=== PATIENT | male | born 1970 | race Caucasian/White ===

== ENCOUNTER 2019-02-22 13:06 | Emergency (ER) | payer BC ==
[2019-02-22 13:12] VITALS: RESP 18; TEMP 98.3
[2019-02-22] MEDS ORDERED: KETOROLAC 30 MG/ML 1 ML VIAL IVP STA (13:28)
[2019-02-22] MEDS ORDERED: ONDANSETRON 4 MG/2 ML VIAL IVP STA (13:28)
[2019-02-22] MEDS ORDERED: SODIUM CHLORIDE 0.9% 1,000 ML IV STA (13:28)
--- NOTE | 2019-02-22 13:47 | ED ---
Abdominal Pain HPI - General Chief Complaint: Abdominal Pain Stated Complaint: Kidney Stone Time Seen by Provider: 02/22/19 13:24 Source: patient Mode of arrival: ambulatory Limitations: no limitations - History of Present Illness Initial Comments: Patient is a 49-year-old male presenting to the emergency Department with complaints of an acute onset left sided abdominal pain. Patient states he noticed the pain this morning but has been increasing for the past few hours. Patient states he does have a history of kidney stones and this feels similar. Patient states his last one was months ago. Patient admits to mild nausea. Patient denies fever, chills, vomiting. Patient describes the pain along his left side that sometimes radiates towards his groin. Patient states he feels like he's been having to use the restroom more frequently. Patient denies any hematuria. Patient has no other complaints at this time. Upon arrival to the ER, vital signs are stable, afebrile. - Related Data Previous Rx's Medication Instructions Recorded Ketorolac [Toradol] 10 mg PO Q8HR #15 tab 02/22/19 Tamsulosin [Flomax] 0.4 mg PO DAILY #7 cap 02/22/19 Allergies Allergy/AdvReac Type Severity Reaction Status Date / Time No Known Allergies Allergy Verified 02/22/19 13:09 Review of Systems ROS Statement: Those systems with pertinent positive or pertinent negative responses have been documented in the HPI. ROS Other: All systems not noted in ROS Statement are negative. Past Medical History Additional Past Medical History / Comment(s): kindey stones History of Any Multi-Drug Resistant Organisms: None Reported Past Surgical History: No Surgical Hx Reported Past Psychological History: No Psychological Hx Reported Smoking Status: Never smoker Past Alcohol Use History: None Reported Past Drug Use History: None Reported General Exam - General Exam Comments Initial Comments: GENERAL: Patient is pacing in the room, sitting than standing, uncomfortable. HEAD: Atraumatic, normocephalic. EYES: Pupils equal round and reactive to light, extraocular movements intact, sclera anicteric, conjunctiva are normal. ENT: Nares patent, oropharynx clear without exudates. Moist mucous membranes. NECK: Normal range of motion, supple without lymphadenopathy or JVD. LUNGS: Breath sounds clear to auscultation bilaterally and equal. No wheezes rales or rhonchi. HEART: Regular rate and rhythm without murmurs, rubs or gallops. ABDOMEN: Tender to palpation in the left flank, left side abdomen. Soft, normoactive bowel sounds. No guarding, no rebound. No masses appreciated. : Deferred EXTREMITIES: Normal range of motion, no pitting or edema. No clubbing or cyanosis. NEUROLOGICAL: Cranial nerves II through XII grossly intact. Normal speech, normal gait. PSYCH: Normal mood, normal affect. SKIN: Warm, Dry, normal turgor, no rashes or lesions noted. Limitations: no limitations Course Vital Signs 02/22/19 13:09 Temperature 98.3 F Pulse Rate 82 Respiratory 18 Rate Blood Pressure 150/81 O2 Sat by Pulse 96 Oximetry Medical Decision Making - Medical Decision Making Patient is a 49-year-old male presenting with left-sided flank pain that started today. Patient's vital signs are stable. Lab work reveals a 1.32 creatinine, glucose is 302, total bili is 2.3. UA reveals 4+ glucose, large amount of blood. CT of the abdomen reveals 5-6 mm distal left ureter calculus causing mild to moderate left-sided hydronephrosis. Depending calcified gallstones are also seen on computed tomography scan. Patient was given fluids, Toradol for pain relief and reports improvement in his symptoms. Ultrasound of the gallbladder was ordered. Ultrasound reveals a gallstone without secondary evidence for acute cholecystitis. No biliary duct dilation. Patient is stable for discharge at this time. Patient does not live in this area but will follow- up with his urologist as well as PCP. Patient is in agreement with this plan of care. Return parameters were discussed with the patient he verbalizes understanding. Case discussed with Dr. Govea. - Lab Data Result diagrams: 02/22/19 13:55 02/22/19 13:55 Lab Results 02/22/19 02/22/19 02/22/19 Range/Units 13:55 13:55 13:55 WBC 7.4 (3.8-10.6) k/uL RBC 5.62 (4.30-5.90) m/uL Hgb 17.3 (13.0-17.5) gm/dL Hct 48.8 (39.0-53.0) % MCV 86.9 (80.0-100.0) fL MCH 30.8 (25.0-35.0) pg MCHC 35.5 (31.0-37.0) g/dL RDW 12.6 (11.5-15.5) % Plt Count 206 (150-450) k/uL Neutrophils % 62 % Lymphocytes % 28 % Monocytes % 5 % Eosinophils % 2 % Basophils % 1 % Neutrophils # 4.6 (1.3-7.7) k/uL Lymphocytes # 2.1 (1.0-4.8) k/uL Monocytes # 0.4 (0-1.0) k/uL Eosinophils # 0.1 (0-0.7) k/uL Basophils # 0.1 (0-0.2) k/uL Sodium 139 (137-145) mmol/L Potassium 3.8 (3.5-5.1) mmol/L Chloride 106 (98-107) mmol/L Carbon Dioxide 24 (22-30) mmol/L Anion Gap 9 mmol/L BUN 12 (9-20) mg/dL Creatinine 1.32 H (0.66-1.25) mg/dL Est GFR (CKD-EPI)AfAm 72 (>60 ml/min/1.73 sqM) Est GFR (CKD-EPI)NonAf 62 (>60 ml/min/1.73 sqM) Glucose 302 H (74-99) mg/dL Calcium 9.4 (8.4-10.2) mg/dL Total Bilirubin 2.3 H (0.2-1.3) mg/dL AST 46 (17-59) U/L ALT 70 (21-72) U/L Alkaline Phosphatase 79 (38-126) U/L Total Protein 7.2 (6.3-8.2) g/dL Albumin 4.3 (3.5-5.0) g/dL Amylase 65 (30-110) U/L Lipase 128 (23-300) U/L Urine Color Yellow Urine Appearance Clear (Clear) Urine pH 5.5 (5.0-8.0) Ur Specific [place] 1.026 (1.001-1.035) Urine Protein Negative (Negative) Urine Glucose (UA) 4+ H (Negative) Urine Ketones Negative (Negative) Urine Blood Large H (Negative) Urine Nitrite Negative (Negative) Urine Bilirubin Negative (Negative) Urine Urobilinogen <2.0 (<2.0) mg/dL Ur Leukocyte Esterase Negative (Negative) Urine RBC 46 H (0-5) /hpf Urine WBC 1 (0-5) /hpf Ur Squamous Epith Cells <1 (0-4) /hpf Urine Mucus Rare H (None) /hpf Disposition Clinical Impression: Calculus of distal left ureter, Gallstone Disposition: HOME SELF-CARE Condition: Stable Instructions (If sedation given, give patient instructions): Kidney Stones (ED) Additional Instructions: Please return to the Emergency Department if symptoms worsen or any other concerns. Please schedule an appointment with a primary care physician or internal medicine doctor for follow-up for kidney stones, gallbladder stone, elevated glucose levels. You have a large left-sided kidney stone causing pain today as well as small right kidney stones and a stone in the gallbladder. Take medications as prescribed. Prescriptions: Tamsulosin [Flomax] 0.4 mg PO DAILY #7 cap Ketorolac [Toradol] 10 mg PO Q8HR #15 tab Is patient prescribed a controlled substance at d/c from ED?: No Referrals: None,Stated [Primary Care Provider] - 1-2 days Dylan Villegas MD [REFERRING] - 1-2 days
[2019-02-22 14:11] LABS: Basophils # (A) 0.1 k/uL (0-0.2); Basophils % (A) 1 %; Eosinophils # (A) 0.1 k/uL (0-0.7); Eosinophils % (A) 2 %; HCT 48.8 % (39.0-53.0); HGB 17.3 gm/dL (13.0-17.5); Lymphocytes # (A) 2.1 k/uL (1.0-4.8); Lymphocytes % (A) 28 %; MCH 30.8 pg (25.0-35.0); MCHC 35.5 g/dL (31.0-37.0); MCV 86.9 fL (80.0-100.0); Mean Platelet Volume 6.5; Monocytes # (A) 0.4 k/uL (0-1.0); Monocytes % (A) 5 %; Neutrophils # (A) 4.6 k/uL (1.3-7.7); Neutrophils % (A) 62 %; Platelet Count 206 k/uL (150-450); RBC 5.62 m/uL (4.30-5.90); RDW 12.6 % (11.5-15.5); WBC 7.4 k/uL (3.8-10.6)
[2019-02-22 14:15] LABS: Appearance,Urine Clear (Clear); Bilirubin,Urine Negative (Negative); Blood,Urine Large (Negative); Color,Urine Yellow; Glucose,Urine (UA) 4+ (Negative); Ketones,Urine Negative (Negative); Leukocyte Esterase,Urine Negative (Negative); Mucus,Urine Rare /hpf; Nitrite,Urine Negative (Negative); PH, Urine 5.5 (5.0-8.0); Protein,Urine Negative (Negative); RBC,Urine 46 /hpf (0-5); Specific Gravity,Urine 1.026 (1.001-1.035); Squamous Epithelial Cell,Urine <1 /hpf (0-4); Urobilinogen,Urine <2.0 mg/dL (<2.0)
[2019-02-22 14:22] LABS: Albumin 4.3 g/dL (3.5-5.0); Calcium 9.4 mg/dL (8.4-10.2); Potassium 3.8 mmol/L (3.5-5.1); Total Bilirubin 2.3 mg/dL (0.2-1.3); Total Protein 7.2 g/dL (6.3-8.2)
--- NOTE | 2019-02-22 14:39 | CT ---
EXAMINATION TYPE: CT abdomen pelvis wo con DATE OF EXAM: 02/22/2019 HISTORY: Lt flank pain CT DLP: 615.3 mGycm. Automated Exposure Control for Dose Reduction was Utilized. TECHNIQUE: CT scan of the abdomen and pelvis is performed without oral or IV contrast. COMPARISON: NONE FINDINGS: Within the limitations of a non-contrast study, the following observations are made. LUNG BASES: No significant abnormality is appreciated. LIVER/GB: Liver is diffusely low-density consistent with fatty infiltration. Dependent calcified gall stones and gallbladder are seen.. PANCREAS: No significant abnormality is seen. SPLEEN: No significant abnormality is seen. ADRENALS: No significant abnormality is seen. KIDNEYS: There are 3-4 nonobstructing right renal calculi measuring up to 3 mm in size. No right-side d hydronephrosis or obstructing ureteral calculi. No left-sided renal calculi but there is obstructin g 5-6 mm calculus distal left ureter causing [id number] left-sided hydronephrosis and mild left -sided perinephric and periureteric fat stranding. No intraluminal calculus in poorly distended bladd er. BOWEL: Poorly distended bowel. No suspicious small or large bowel dilatation. Occasional distal colon ic diverticula proximal sigmoid colon. GENITAL ORGANS: No gross abnormality seen. LYMPH NODES: No greater than 1cm abdominal or pelvic lymph nodes are appreciated. OSSEOUS STRUCTURES: Mild disc space narrowing lower lumbar levels. Facet arthropathy lower lumbar lev els. Hypoplastic right T12 rib incidentally noted. Moderate narrowing in both hip joints.. OTHER: No significant additional abnormality is seen. IMPRESSION: There is 5 to 6 mm distal left ureteric calculus causing [id number] left-sided hydr onephrosis.
--- NOTE | 2019-02-22 16:17 | US ---
EXAMINATION TYPE: US gallbladder DATE OF EXAM: 02/22/2019 COMPARISON: CT earlier today. CLINICAL HISTORY: pain, elevated bili. Patient is not NPO. EXAM MEASUREMENTS: Liver Length: 19.7 cm Gallbladder Wall: 0.2 cm CBD: 0.3 cm Right Kidney: 10.7 x 5.4 x 4.7 cm Pancreas: Tail obscured by overlying bowel gas. Appears echogenic in appearance. Liver: Increased attenuation, decreased visualization of vessels suggestive of fatty infiltrate. Ap pears coarse and enlarged. Gallbladder: Echogenic focus visualized at neck = 0.8 cm. Evidence for sonographic Carmichael's sign: neg CBD: wnl Right Kidney: No hydronephrosis or masses seen Visualized pancreas is heterogeneous visualized liver is heterogeneously hyperechoic. Dependent galls tone in gallbladder. No pericholecystic fluid or abnormal gallbladder wall thickening. IMPRESSION: Gallstone without secondary ultrasound evidence for acute cholecystitis. Diffuse fatty in filtration of liver redemonstrated. No intrahepatic or extrahepatic biliary dilatation. No significan t change from recent CT.
[2019-02-22 16:57] VITALS: BP 126/91; PULSE 80
== END 2019-02-22 17:02 | disposition home or self-care (01) ==
LOC: EC 13:06
DX: N13.2 Hydronephrosis with renal and ureteral calculous obstruction (principal); K80.20 Calculus of gallbladder without cholecystitis without obstruction
CPT/HCPCS: 36415; 80053; 82150; 83690; 85025; 81001; 76705; 74176; 99284; 96374; 96375; 96361; J2405; J1885